=== PATIENT | male | born 1995 | race Caucasian/White ===

== ENCOUNTER 2019-07-28 23:38 | Emergency (ER) | payer BC ==
--- NOTE | 2019-07-29 01:09 | ER Document Report ---
ED General - General Chief Complaint: ETOH Abuse Stated Complaint: FALL/ETOH Time Seen by Provider: 07/29/19 01:05 Notes: Patient is a 24-year-old male that comes emergency department for chief complaint of becoming intoxicated and falling from a 4 foot barstool, striking his head. Reportedly patient had a loss of consciousness for 2 minutes. When EMS arrived patient was sitting outside after patrons of the bar had aroused him. Patient reportedly had a breathalyzer result of 0.31 NICKO. Patient does open his eyes to verbal stimuli, is drowsy, has slurred speech, has trouble recalling the events of this evening. Patient denies any daily medications, diagnosed medical history, he does smoke and drink alcohol recreationally, denies recreational drugs. TRAVEL OUTSIDE OF THE [place] IN LAST 30 DAYS: No - Related Data Allergies/Adverse Reactions: No Known Allergies Allergy (Unverified 07/29/19 00:03) Past Medical History - General Information source: Patient, Emergency Med Personnel - Social History Smoking Status: Current Every Day Smoker Frequency of alcohol use: None Drug Abuse: None Lives with: Spouse/Significant other Family History: Reviewed & Not Pertinent Patient has suicidal ideation: No Patient has homicidal ideation: No - Medical History Medical History: Negative Surgical Hx: Negative - Immunizations Immunizations up to date: Yes Hx Diphtheria, Pertussis, Tetanus Vaccination: Yes Review of Systems - Review of Systems Constitutional: See HPI EENT: No symptoms reported Cardiovascular: No symptoms reported Respiratory: No symptoms reported Gastrointestinal: No symptoms reported Genitourinary: No symptoms reported Male Genitourinary: No symptoms reported Musculoskeletal: See HPI Skin: No symptoms reported Hematologic/Lymphatic: No symptoms reported Neurological/Psychological: See HPI Physical Exam - Vital signs Vitals: Temp Pulse Resp BP Pulse Ox 98.0 F 86 20 118/74 99 07/28/19 23:48 07/28/19 23:48 07/28/19 23:48 07/28/19 23:48 07/28/19 23:48 - Notes Notes: GENERAL: Drowsy but arousable. Slurring speech. No signs of distress. HEAD: Normocephalic, atraumatic. EYES: Pupils equal, round, and reactive to light. Extraocular movements intact. ENT: Oral mucosa moist, tongue midline. Oropharynx unremarkable. Airway patent. Nares patent, no nasal septal hematoma, TM's intact. NECK: Full range of motion. Supple. Trachea midline. LUNGS: Clear to auscultation bilaterally, no wheezes, rales, or rhonchi. No respiratory distress. No signs of trauma. HEART: Regular rate and rhythm. No murmur ABDOMEN: Soft, non-tender. Non-distended. No signs of trauma. EXTREMITIES: Moves all 4 extremities spontaneously. No edema, normal radial and dorsalis pedis pulses bilaterally. No cyanosis. BACK: No signs of trauma. No cervical, thoracic, lumbar midline tenderness. No saddle anesthesia, normal distal neurovascular exam. Moves all extremities in full range of motion. NEUROLOGICAL: Drowsy but spontaneously arouses and also responds to voice. Alert and oriented to person and place but not to events. Slightly slurred speech. Cranial nerves II through XII grossly intact. SKIN: Warm, dry, normal turgor. No rashes or lesions noted. Course - Re-evaluation Re-evalutation: Patient appears highly intoxicated and he is drowsy but he actually arrived spontaneously and spoke to me. He denies any current pain or any current complaints. CT of the head and neck pending, blood chemistry pending, patient will be placed on pulse oximetry and closely monitored. Patient is maintaining his airway without difficulty at this time. CT of the head and neck negative. Chemistry unremarkable. On reevaluation patient is still drowsy but easily arousable. We will continue to monitor him. 07/29/19 06:45 Patient has been reevaluated twice. Now he is awake, alert, asking about what happened last night. I discussed this with him, discussed results. Patient states personal annoyance but states gratefulness for care. He states he is ready to go home. Patient got up and ambulated without any difficulty or ataxia, he has no current symptoms reported, he has no slurred speech. Patient is clinically sober. Patient is asking to go home, he will be calling a ride. Discussed head and precautions, postconcussive syndrome. Patient states u nderstanding and agreement. Patient will be stable to go home with a ride. - Vital Signs Vital signs: Temp Pulse Resp BP Pulse Ox 98 F 76 18 116/72 98 07/29/19 06:45 07/29/19 06:45 07/29/19 06:45 07/29/19 06:45 07/29/19 06:45 - Laboratory Result Diagrams: 07/29/19 01:28 Laboratory results interpreted by me: 07/29/19 01:28 BUN 5 L Glucose 114 H Discharge - Discharge Clinical Impression: Alcohol intoxication Qualifiers: Complication of substance-induced condition: with unspecified complication Qualified Code(s): F10.929 - Alcohol use, unspecified with intoxication, unspecified Head injury Qualifiers: Encounter type: initial encounter Qualified Code(s): S09.90XA - Unspecified injury of head, initial encounter Disposition: HOME, SELF-CARE Additional Instructions: Avoid drinking alcohol to intoxication. You did have a head injury and you were knocked out, however the brain scan is normal. You most likely have postconcussive symptoms. Also please follow the head injury precautions listed below. Take nausea medication if needed, take Tylenol and/or ibuprofen for pain, drink plenty of fluids and rest. Follow-up with primary care. Return for any concerning or worsening symptoms. Head Injury Precautions At this point, there is no evidence that your head injury is serious. Observation is necessary, however. Limit activity for the first 24 hours. During the first 24 hours, check to see approximately every two to three hours that the patient is easily arousable, responds normally, and can perform common tasks such as walking without diff iculty. Contact your doctor or go to the hospital if any of the following things occur: Persistent vomiting, difficulty in arousing the patient, worsening or continued headache, or failure to improve as expected. Head injuries can cause symptoms that persist for a few days or even a few weeks. Post-Concussion Syndrome Post-concussion syndrome often follows a head injury. Dizziness, mild nausea, mild headache, trouble concentrating, and a general sense of "not being right" may persist for a week or two. This is a frequent complication of concussion. However, if the symptoms worsen, or new symptoms develop, you should be re- examined by the physician. There is no specific cure for post-concussion syndrome. You can take mild pain medication such as ibuprofen or acetaminophen. While you should not drive if you are dizzy, you can get back to your regular activities as quickly as the symptoms will allow. And while vigorous exercise may worsen the headache, mild physical activity often is helpful. Sitting and thinking about your symptoms will worsen them. If difficulties continue, you may need referral for special therapy to help you regain full mental function. Call the physician if you are worsening, or if symptoms are still present in one week. Report any new symptoms immediately. Prescriptions: Ondansetron [Zofran Odt 4 mg Tablet] 1 - 2 tab PO Q4H PRN #15 tab.rapdis PRN Reason: For Nausea/Vomiting
[2019-07-29] MEDS ORDERED: NORMAL SALINE 1000 ML 1,000 ML IV ONE (01:26)
--- NOTE | 2019-07-29 01:35 | RADIOLOGY REPORT (SQ) ---
EXAM DESCRIPTION: CT HEAD WITHOUT IV CONTRAST COMPLETED DATE/TME: 07/29/2019 00:00 CLINICAL HISTORY: fall; head injury; + loss of consciousness COMPARISON: None available TECHNIQUE: Axial CT of the head obtained from the skull apex to the skull base without contrast. FINDINGS: No acute intracranial hemorrhage identified. No mass, mass effect, shift of the midline, abnormal extra-axial fluid collection or CT evidence of acute ischemic change identified. The ventricular system is unremarkable. No acute abnormalities of the supratentorial white matter, basal ganglia, cerebellum, or brainstem. The visualized paranasal sinuses and the mastoids are clear. No skull fracture identified. Visualized orbits and globes are unremarkable. IMPRESSION: 1. No acute intracranial abnormality identified. This exam was performed according to our departmental dose-optimization program, which includes automated exposure control, adjustment of the mA and/or kV according to patient size and/or use of iterative reconstruction technique.
--- NOTE | 2019-07-29 01:37 | RADIOLOGY REPORT (SQ) ---
EXAM DESCRIPTION: CT CERVICAL SPINE WITHOUT IV CONTRAST COMPLETED DATE/TME: 07/29/2019 00:00 CLINICAL HISTORY: fall; head injury; + loss of consciousness COMPARISON: None available TECHNIQUE: Axial CT of the cervical spine obtained without contrast. FINDINGS: Alignment of the cervical spine is maintained without evidence of subluxation. The atlantoaxial, atlantodental, and occipitoatlantal intervals are preserved. No fracture identified. Vertebral body height preserved. Prevertebral soft tissues are unremarkable. Intervertebral disc height preserved. Visualized skull base is intact. No fracture of the visualized facial bones. Visualized mastoid air cells and paranasal sinuses are well aerated. Visualized thyroid is unremarkable. No cervical lymphadenopathy. No pneumothorax in the visualized lung apices. IMPRESSION: 1. No acute fracture or subluxation of the cervical spine. This exam was performed according to our departmental dose-optimization program, which includes automated exposure control, adjustment of the mA and/or kV according to patient size and/or use of iterative reconstruction technique.
[2019-07-29 01:55] LABS: ANION GAP 9 (5-19); BLOOD UREA NITROGEN 5 mg/dL (7-20); CALCIUM 9.5 mg/dL (8.4-10.2); CARBON DIOXIDE 29 mmol/L (22-30); CHLORIDE 106 mmol/L (98-107); GLUCOSE 114 mg/dL (75-110)
[2019-07-29 07:41] VITALS: BP 105/56
== END 2019-07-29 07:42 | disposition home or self-care (01) ==
LOC: EDBD → ER 23:38
DX: S09.90XA Unspecified injury of head, initial encounter (principal); F10.929 Alcohol use, unspecified with intoxication, unspecified; W07.XXXA Fall from chair, initial encounter; F17.200 Nicotine dependence, unspecified, uncomplicated
CPT/HCPCS: 99284; 96360; 36415; 80048; 70450; 72125; J7030